=== PATIENT | female | born 1980 | race Caucasian/White ===

== ENCOUNTER 2020-09-21 08:05 | Outpatient (CLI) | payer OTHER, SELFPAY ==
--- NOTE | ~2020-09-21 | MMUS_ITS ---
EXAMINATION: MM diagnostic kedar BI w alison, US breast BI complete HISTORY: Left breast lump for one year with occasional pain. Bilateral reportedly benign excisional b iopsies the breasts at age 60 TECHNIQUE: ML, MLO and craniocaudal full field and spot 3-D tomosynthesis images of both breasts were performed and synthetic 2-D images were generated. CAD analysis was submitted and interpreted. High resolution bilateral complete breast ultrasound was performed. COMPARISON: None BREAST PARENCHYMAL COMPOSITION: The breasts are heterogeneously dense, which may obscure small masses . FINDINGS: MAMMOGRAPHIC FINDINGS: Up to 2.9, 2.2 cm and 11 mm circumscribed masses are noted in the upper outer left breast. Approximately 8 mm circumscribed low-density mass is suggested in the lower inner quadrant of the lef t breast. The heterogeneous dense stroma may obscure additional masses. Bilateral complete breast ultrasound ex amination was performed. ULTRASOUND: Right breast: 8:00 5 cm from nipple: 5 x 2.8 x 5.2 mm simple cyst 10:00 12 cm from nipple: 3 x 10 x 10 mm circumscribed parallel hypoechoic lesion without internal vas cularity or suspicious shadowing 11:00 12 cm from nipple: 3.4 x 11 x 12 mm parallel circumscribed hypoechoic lesion without internal v ascularity or suspicious shadowing 11:00 subareolar area: 6.4 x 3.5 x 5.7 mm septated cyst Left breast: At area of palpable abnormality at 2:00 9 cm from nipple: 2 x 3.4 cm circumscribed mildly lobular hyp oechoic solid lesion with internal vascularity and some through-transmission, most likely a fibroaden roxy 2:00 4 cm from nipple: Similar parallel circumscribed hypoechoic 1.4 x 2 x 2.2 cm hypoechoic solid le miguelina with some internal vascularity and posterior enhancement, most likely a benign fibroadenoma 5:00 4 cm from nipple: 5 x 10 x 8 mm circumscribed hypoechoic lesion without internal vascularity, wi th some backwall enhancement, likely benign 8:00 7 cm from nipple: Parallel circumscribed 2.7 x 7 mm hypoechoic lesion without internal vasculari ty or posterior shadowing 10:00 7 cm from nipple: Parallel circumscribed 4.2 x 9.5 x 8.5 mm hypoechoic lesion without internal vascularity or posterior shadowing 12:00 6 cm from nipple: Lobular oval parallel circumscribed heterogeneous hypoechoic lesion with inte rnal vascularity and no posterior shadowing, measuring 11 x 9 x 11 mm dimension IMPRESSION: 1. Probable benign findings of both breasts 2. 6 month bilateral diagnostic mammography and bilateral breast ultrasound follow-up is recommended BI-RADS category 3, probably benign findings. Reviewed, dictated and finalized at location A. IMPRESSION: 1. Probable benign findings of both breasts 2. 6 month bilateral diagnostic mammography and bilateral breast ultrasound fol low-up is recommended BI-RADS category 3, probably benign findings.
== END 2020-09-21 08:06 ==
PROVIDERS: Visit Provider Student in an Organized Health Care Education/Training Program
DX: N63.0 Unspecified lump in unspecified breast (principal); R92.8 Other abnormal and inconclusive findings on diagnostic imaging of breast
CPT/HCPCS: 76641; 77062; 77066; G0279

== ENCOUNTER 2021-01-31 14:32 | Emergency (ER) | payer OTHER, SELFPAY ==
[2021-01-31 14:43] VITALS: BP 129/85; PULSE 98; RESP 18; TEMP 37.2; O2SAT 100
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
== END 2021-01-31 15:00 | disposition home or self-care (01) ==
PROVIDERS: Emergency Provider Nurse Practitioner Adult Health
DX: F41.9 Anxiety disorder, unspecified (principal); F32.9 Major depressive disorder, single episode, unspecified
CPT/HCPCS: 99211; G0463

== ENCOUNTER 2021-02-06 16:52 | Emergency (ER) | payer OTHER, SELFPAY ==
[2021-02-06 17:02] VITALS: BP 129/88; PULSE 76; RESP 16; TEMP 36.9; O2SAT 98
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
== END 2021-02-06 17:37 | disposition home or self-care (01) ==
PROVIDERS: Emergency Provider Nurse Practitioner Family; PCP Family Medicine
DX: F41.9 Anxiety disorder, unspecified (principal); F41.0 Panic disorder [episodic paroxysmal anxiety]; F17.210 Nicotine dependence, cigarettes, uncomplicated; F90.9 Attention-deficit hyperactivity disorder, unspecified type; F32.A Depression, unspecified
CPT/HCPCS: 99213; G0463

== ENCOUNTER 2021-03-13 12:28 | Emergency (ER) | payer OTHER, SELFPAY ==
[2021-03-13 12:41] VITALS: BP 143/86; PULSE 95; RESP 16; TEMP 37.2; O2SAT 98
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
== END 2021-03-13 14:08 | disposition home or self-care (01) ==
PROVIDERS: Emergency Provider Registered Nurse
DX: F41.9 Anxiety disorder, unspecified (principal); F17.210 Nicotine dependence, cigarettes, uncomplicated
CPT/HCPCS: 99211; G0463